=== PATIENT | female | born 1965 | race Caucasian/White ===

== ENCOUNTER 2019-03-07 13:46 | Emergency (ER) | payer OTHER ==
[~2019-03-07] VITALS: Ht 165.1 cm; Wt 104.3 kg
[2019-03-07 14:23] LABS: BASOPHILS ABSOLUTE AUTO 0.07 K/mm3 (0.00-0.23); BASOPHILS PERCENT AUTO 1 % (0-2); EOSINOPHILS ABSOLUTE AUTO 0.92 K/mm3 (0.00-0.68); EOSINOPHILS PERCENT AUTO 11 % (0-6); Hematocrit 44.8 % (33.0-51.0); Hemoglobin 14.8 g/dL (11.5-16.0); IMMATURE GRAN ABSOLUTE AUTO 0.02 K/mm3 (0.00-0.10); IMMATURE GRAN PERCENT AUTO 0 % (0-1); LYMPHOCYTES ABSOLUTE AUTO 2.32 K/mm3 (0.84-5.20); LYMPHOCYTES PERCENT AUTO 28 % (21-46); MONOCYTES ABSOLUTE AUTO 0.64 K/mm3 (0.16-1.47); MONOCYTES PERCENT AUTO 8 % (4-13); Mean Corpuscular HGB 29.7 pg (26.0-34.0); Mean Corpuscular Volume 90 fL (80-100); Mean Platelet Volume 9.4 fL (9.1-12.4); NEUTROPHILS ABSOLUTE AUTO 4.33 K/mm3 (1.96-9.15); NEUTROPHILS PERCENT AUTO 52 % (41-73); Platelet Count 300 K/mm3 (150-400); RDW Coefficient Variation 12.4 % (11.7-14.2); RDW Standard Deviation 41.1 fL (35.1-46.3); Red Blood Cell Count 4.98 M/mm3 (3.80-5.20)
[2019-03-07 14:48] LABS: Alanine Aminotransfer (ALT/SGP 26 U/L (12-78); Albumin, Blood 3.5 g/dL (3.4-5.0); Albumin/Globulin Ratio 0.9 (0.8-1.8); Alk Phos 71 U/L (50-136); Anion Gap 8 mmol/L (6-16); Aspartate Aminotrans (AST/SGOT 13 U/L (12-37); Bilirubin, Total 0.6 mg/dL (0.1-1.0); Blood Urea Nitrogen 16 mg/dL (8-24); Bun/Creatinine Ratio 15.5 (12.0-20.0); CO2, Blood 24 mmol/L (21-32); Calcium, Blood 8.8 mg/dL (8.5-10.1); Chloride, Blood 108 mmol/L (98-108); Creatinine, Blood 1.03 mg/dL (0.40-1.00); Globulin, Blood 3.8 g/dL (2.2-4.0); Glomerular Filtration Rate 60 (60-); Glucose, Blood 146 mg/dL (70-99); Potassium, Blood 3.8 mmol/L (3.5-5.5); Sodium, Blood 140 mmol/L (136-145); Total Protein, Blood 7.3 g/dL (6.4-8.2); Troponin I <0.015 ng/mL (0.000-0.040)
[2019-03-07] MEDS ORDERED: ALBU90OI INH (15:52)
[2019-03-07] MEDS ORDERED: FLUT1DIS2 INH (15:52)
== END 2019-03-07 16:56 | disposition home or self-care (01) ==
LOC: ER 13:46
PROVIDERS: Physician Assistant
DX: J45.909 Unspecified asthma, uncomplicated (principal); Z87.891 Personal history of nicotine dependence; Z88.8 Allergy status to other drugs, medicaments and biological substances
CPT/HCPCS: 36415; 71046; 80053; 83880; 84484; 85025; 93005; 93010; 94644; 99284-25

== ENCOUNTER → 2019-11-26 | Outpatient (CLI) | payer OTHER ==
[~2019-11-26] MED LIST: ALBU90OI INH; FLUT1DIS2 INH
[2019-11-28 15:09] LABS: COTININE Negative ng/mL (Cutoff=300)
== END | disposition home or self-care (01) ==
LOC: LAB SHORT 15:26 → OLS 15:26
PROVIDERS: Orthopaedic Surgery
DX: Z01.812 Encounter for preprocedural laboratory examination (principal); Z87.891 Personal history of nicotine dependence

== ENCOUNTER 2020-01-21 05:59 | Day surgery (SDC) | payer OTHER ==
[~2020-01-21] VITALS: Wt 112.8 kg
[~2020-01-21 05:59] MED LIST changes: +ACET500 PO; +CURCUMIN PO; +ESCI10 PO; +METF500 PO; +MONT10T PO; +VITAMIN D2 PO; +Vitamin C100 M1 PO
--- NOTE | 2020-01-21 06:37 | NUR ---
Ambulatory in Day SurgeryLungs clear T/O to Auscultation. Patient confirms NPO status and agrees with scheduled surgery. Patient confirms NPO status and agrees with scheduled surgery.
--- NOTE | 2020-01-21 14:39 | NUR ---
THERAPY BEEN TO SEE PT, REPORTED THAT PT BECAME NAUSEOUS BUT DID NOT THROW UP AND THAT OTHER RN GAVE NAUSEA MEDICATION. PT NOW RESTING QUIETLY IN RECLINER CHAIR.
--- NOTE | 2020-01-21 16:29 | NUR ---
SHIFT SUMMARY PT ATE SMALL AMT OF LUNCH. WAS MED FOR NAUSEA DURING THERAPY. PT BEEN RESTING QUIETLY WHEN NOT DISTURBED. PT BEEN ASSISTED WITH ADL'S PRN. PT BEEN MED PRN FOR PAIN.
--- NOTE | 2020-01-21 17:11 | NUR ---
PT REPORT TO HAVE NAUSEA WHEN UP AND WALKED BUT BETTER NOW. PT VOIDED.
--- NOTE | 2020-01-22 04:44 | NUR ---
SHIFT SUMMARY L DONG POD1, A/O X4, VSS, TOLERATING PO, VOIDING WELL, PASSING FLATUS, AMBULATING W/ GB & FWW, UP TO CHAIR, POLAR PACK IN PLACE, PAIN CONTROLLED PER EMAR. CALL LIGHT IN REACH, WILL CONTINUE TO MONITOR AND REPORT TO ONCOMING DAY RN.
[2020-01-22 05:04] LABS: BASOPHILS ABSOLUTE AUTO 0.02 K/mm3 (0.00-0.23); BASOPHILS PERCENT AUTO 0 % (0-2); EOSINOPHILS PERCENT AUTO 0 % (0-6); Hematocrit 32.5 % (33.0-51.0); Hemoglobin 10.1 g/dL (11.5-16.0); IMMATURE GRAN ABSOLUTE AUTO 0.09 K/mm3 (0.00-0.10); IMMATURE GRAN PERCENT AUTO 1 % (0-1); LYMPHOCYTES ABSOLUTE AUTO 1.71 K/mm3 (0.84-5.20); LYMPHOCYTES PERCENT AUTO 10 % (21-46); MONOCYTES PERCENT AUTO 9 % (4-13); Mean Corpuscular HGB 28.8 pg (26.0-34.0); Mean Corpuscular HGB Conc 31.1 g/dL (31.5-36.5); Mean Corpuscular Volume 93 fL (80-100); Mean Platelet Volume 9.3 fL (9.1-12.4); NEUTROPHILS ABSOLUTE AUTO 14.33 K/mm3 (1.96-9.15); NEUTROPHILS PERCENT AUTO 81 % (41-73); Platelet Count 263 K/mm3 (150-400); RDW Coefficient Variation 12.5 % (11.7-14.2); RDW Standard Deviation 42.7 fL (35.1-46.3); Red Blood Cell Count 3.51 M/mm3 (3.80-5.20); White Blood Cell Count 17.65 K/mm3 (4.00-11.30)
[2020-01-22 05:30] LABS: Anion Gap 5 mmol/L (6-16); Blood Urea Nitrogen 17 mg/dL (8-24); Bun/Creatinine Ratio 19.3 (12.0-20.0); CO2, Blood 25 mmol/L (21-32); Calcium, Blood 8.3 mg/dL (8.5-10.1); Chloride, Blood 106 mmol/L (98-108); Creatinine, Blood 0.88 mg/dL (0.40-1.00); Glomerular Filtration Rate >60 (60-); Glucose, Blood 147 mg/dL (70-99); Potassium, Blood 4.6 mmol/L (3.5-5.5); Sodium, Blood 136 mmol/L (136-145)
[2020-01-22] MEDS ORDERED: Percocet 5-3251 EACH PO (09:33)
[2020-01-22] MEDS ORDERED: Aspir 8181 MG PO (09:34)
--- NOTE | 2020-01-22 10:33 | NUR ---
1030 discharged to home with . pt reports pain controlled, hector po food and fluid. pt verbalizes understanding of discharge instructions
--- NOTE | 2020-01-23 15:29 | NUR ---
01/23/20 1529 Luann Hess VERIFICTIONS: EDIT CHART.
== END 2020-01-22 10:30 | disposition home or self-care (01) ==
LOC: ORSCMMR 05:59 → ORD 07:30 → SURS 10:55 → ORSCMMR 01-22 10:30
PROVIDERS: Orthopaedic Surgery
PROC: 0SRB0JZ Replacement of Left Hip Joint with Synthetic Substitute, Open Approach (ICD-10-PCS; principal; 2020-01-21 07:30)
PROC: 8E0Y0CZ Robotic Assisted Procedure of Lower Extremity, Open Approach (ICD-10-PCS; principal; 2020-01-21 07:30)
DX: M16.12 Unilateral primary osteoarthritis, left hip (principal); E11.9 Type 2 diabetes mellitus without complications; J45.909 Unspecified asthma, uncomplicated; Z79.4 Long term (current) use of insulin; Z79.899 Other long term (current) drug therapy
CPT/HCPCS: 27130; S2900; 72170; 80048; 82947; 85025; 88300; 97110; 97116; 97162; 97530; A9270; A9270-GY; C1776; J0171; J0690; J0735; J1100; J1885; J2250; J2370; J2405; J2704; J2710; J2795; J3010; J7120

== ENCOUNTER → 2020-08-11 | Outpatient (CLI) | payer OTHER ==
[~2020-08-11] MED LIST changes: +Aspir 8181 MG PO; +FLOVENT HFA12 GM INH; +GABA100 PO; +NAPR500 PO; +OXYB5 PO; +Percocet 5-3251 EACH PO; +TOPIRAMATE ER50 MG PO; +XARELTO10 M1 PO
[2020-08-13 09:11] LABS: COTININE Negative ng/mL (Cutoff=300)
== END | disposition home or self-care (01) ==
LOC: LAB SHORT 09:00 → LAB 09:00 → LAB FUT 08-10 11:30
PROVIDERS: Orthopaedic Surgery
DX: Z01.812 Encounter for preprocedural laboratory examination (principal); M16.11 Unilateral primary osteoarthritis, right hip

== ENCOUNTER 2020-09-08 08:14 | Day surgery (SDC) | payer OTHER | END 2020-09-09 11:48 | disposition home or self-care (01) | LOC: ORSCMMR 08:14 → SURS 15:07 | PROC: 0SR90JA Replacement of Right Hip Joint with Synthetic Substitute, Uncemented, Open Approach (ICD-10-PCS; principal; 2020-09-08) | DX: M16.11 Unilateral primary osteoarthritis, right hip (principal); E66.01 Morbid (severe) obesity due to excess calories; Z68.41 Body mass index [BMI] 40.0-44.9, adult; Z79.899 Other long term (current) drug therapy ==

== ENCOUNTER 2021-12-03 20:50 | Emergency (ER) | payer OTHER ==
[~2021-12-03] VITALS: Ht 165.1 cm; Wt 94.8 kg
[2021-12-03 21:36] LABS: BASOPHILS ABSOLUTE AUTO 0.05 K/mm3 (0.00-0.23); BASOPHILS PERCENT AUTO 1 % (0-2); EOSINOPHILS ABSOLUTE AUTO 0.25 K/mm3 (0.00-0.68); EOSINOPHILS PERCENT AUTO 2 % (0-6); Hematocrit 41.6 % (33.0-51.0); Hemoglobin 14.1 g/dL (11.5-16.0); IMMATURE GRAN ABSOLUTE AUTO 0.03 K/mm3 (0.00-0.10); IMMATURE GRAN PERCENT AUTO 0 % (0-1); LYMPHOCYTES ABSOLUTE AUTO 2.01 K/mm3 (0.84-5.20); LYMPHOCYTES PERCENT AUTO 19 % (21-46); MONOCYTES PERCENT AUTO 11 % (4-13); Mean Corpuscular HGB 29.3 pg (26.0-34.0); Mean Corpuscular HGB Conc 33.9 g/dL (31.5-36.5); Mean Corpuscular Volume 86 fL (80-100); Mean Platelet Volume 9.9 fL (9.1-12.4); NEUTROPHILS ABSOLUTE AUTO 7.32 K/mm3 (1.96-9.15); NEUTROPHILS PERCENT AUTO 67 % (41-73); Platelet Count 261 K/mm3 (150-400); RDW Coefficient Variation 14.3 % (11.7-14.2); RDW Standard Deviation 44.6 fL (35.1-46.3); Red Blood Cell Count 4.82 M/mm3 (3.80-5.20); White Blood Cell Count 10.86 K/mm3 (4.00-11.30)
[2021-12-03 21:52] LABS: Albumin, Blood 3.1 g/dL (3.4-5.0); Albumin/Globulin Ratio 0.8 (0.8-1.8); Bilirubin, Total 0.7 mg/dL (0.1-1.0); Bun/Creatinine Ratio 18.8 (12.0-20.0); Creatinine, Blood 0.74 mg/dL (0.40-1.00); Globulin, Blood 3.8 g/dL (2.2-4.0); Potassium, Blood 2.8 mmol/L (3.5-5.5); Total Protein, Blood 6.9 g/dL (6.4-8.2)
[2021-12-04] MEDS ORDERED: OMEP20ER PO (01:27)
[2021-12-04] MEDS ORDERED: ONDA4ODT MM (01:40)
== END 2021-12-04 05:07 | disposition home or self-care (01) ==
LOC: ER 20:50
PROVIDERS: Emergency Medicine
DX: R11.2 Nausea with vomiting, unspecified (principal); R10.13 Epigastric pain; N18.30 Chronic kidney disease, stage 3 unspecified; Z98.84 Bariatric surgery status; Z88.8 Allergy status to other drugs, medicaments and biological substances; Z79.899 Other long term (current) drug therapy
CPT/HCPCS: 36415; 74177; 80053; 85025; 96365-59; 96366; 96375; 99284-25; J0780; J2270; J2405; J3480; J7030; J7050; Q9967

== ENCOUNTER 2022-11-23 11:42 | Emergency (ER) | payer OTHER ==
[~2022-11-23] VITALS: Ht 162.6 cm; Wt 68.0 kg
[~2022-11-23 11:42] MED LIST changes: +OMEP20ER PO; +ONDA4ODT MM
[2022-11-23 12:07] LABS: BASOPHILS ABSOLUTE AUTO 0.03 K/mm3 (0.00-0.23); BASOPHILS PERCENT AUTO 0 % (0-2); EOSINOPHILS ABSOLUTE AUTO 0.02 K/mm3 (0.00-0.68); EOSINOPHILS PERCENT AUTO 0 % (0-6); Hematocrit 43.4 % (33.0-51.0); Hemoglobin 14.5 g/dL (11.5-16.0); IMMATURE GRAN ABSOLUTE AUTO 0.03 K/mm3 (0.00-0.10); IMMATURE GRAN PERCENT AUTO 0 % (0-1); LYMPHOCYTES ABSOLUTE AUTO 1.69 K/mm3 (0.84-5.20); LYMPHOCYTES PERCENT AUTO 15 % (21-46); MONOCYTES ABSOLUTE AUTO 0.83 K/mm3 (0.16-1.47); MONOCYTES PERCENT AUTO 7 % (4-13); Mean Corpuscular HGB Conc 33.4 g/dL (31.5-36.5); Mean Corpuscular Volume 90 fL (80-100); Mean Platelet Volume 9.3 fL (9.1-12.4); NEUTROPHILS ABSOLUTE AUTO 8.87 K/mm3 (1.96-9.15); NEUTROPHILS PERCENT AUTO 77 % (41-73); Platelet Count 286 K/mm3 (150-400); RDW Coefficient Variation 12.5 % (11.7-14.2); RDW Standard Deviation 41.3 fL (35.1-46.3); Red Blood Cell Count 4.84 M/mm3 (3.80-5.20); White Blood Cell Count 11.47 K/mm3 (4.00-11.30)
[2022-11-23 12:40] LABS: Albumin, Blood 3.6 g/dL (3.4-5.0); Calcium, Blood 8.8 mg/dL (8.5-10.1); Potassium, Blood 3.9 mmol/L (3.5-5.5)
[2022-11-23 12:41] LABS: Bilirubin, Total 0.9 mg/dL (0.1-1.0); Bun/Creatinine Ratio 14.9 (12.0-20.0); Creatinine, Blood 0.87 mg/dL (0.40-1.00); Globulin, Blood 3.6 g/dL (2.2-4.0); Total Protein, Blood 7.2 g/dL (6.4-8.2)
[2022-11-23] MEDS ORDERED: HYOS.125 PO (15:06)
[2022-11-23] MEDS ORDERED: ONDA4ODT MM (15:06)
[2022-11-23 15:15] VITALS: BP 112/66
== END 2022-11-23 15:40 | disposition home or self-care (01) ==
LOC: ER 11:42
PROVIDERS: Emergency Medicine
DX: K52.9 Noninfective gastroenteritis and colitis, unspecified (principal); N18.30 Chronic kidney disease, stage 3 unspecified; Z88.8 Allergy status to other drugs, medicaments and biological substances; Z79.899 Other long term (current) drug therapy
CPT/HCPCS: 80053; 83690; 85025; 96374; 99284-25; A9270; J2405; J7030

== ENCOUNTER 2024-04-28 11:14 | Emergency (ER) | payer OTHER ==
[~2024-04-28] VITALS: Ht 165.1 cm; Wt 74.8 kg
[~2024-04-28 11:14] MED LIST changes: +HYOS.125 PO
[2024-04-28 11:41] VITALS: BP 119/76
[2024-04-28] MEDS ORDERED: Ketorolac Tromethamine 30mg Vial IM ONE (12:45)
[2024-04-28] MEDS ORDERED: Methocarbamol 500 MG Tab PO ONE (12:50)
[2024-04-28] MEDS ORDERED: Methyl Salicylate/Menth/Camph 57 GM TUBE TOP ONE (12:50)
[2024-04-28 13:24] LABS: Source, Urine Clean Catch
[2024-04-28 13:28] LABS: Appearance, Urine Clear (Clear); Bilirubin, Urine Neg (Neg); Blood, Urine Neg (Neg); Color, Urine Yellow (P-Yellow); Glucose Qualitative, Urine Neg (Neg); Ketones, Urine Neg (Neg); Leukocyte Esterase, Urine 2+ (Neg); Nitrite, Urine Neg (Neg); Protein, Urine Neg (Neg); Urobilinogen, Urine 1+ (Normal)
[2024-04-28 13:38] LABS: Bacteria Many /hpf; Squamous Epithelial Cells Few /hpf (Few)
[2024-04-28] MEDS ORDERED: Robaxin750 MG PO (14:35)
== END 2024-04-28 14:10 | disposition home or self-care (01) ==
LOC: ER 11:14
PROVIDERS: Physician Assistant
DX: M54.50 Low back pain, unspecified (principal); Z59.89 Other problems related to housing and economic circumstances; N18.30 Chronic kidney disease, stage 3 unspecified; Z88.9 Allergy status to unspecified drugs, medicaments and biological substances; Z79.51 Long term (current) use of inhaled steroids; Z79.899 Other long term (current) drug therapy; Z79.1 Long term (current) use of non-steroidal anti-inflammatories (NSAID); Z79.84 Long term (current) use of oral hypoglycemic drugs
CPT/HCPCS: 81001; 87086; 96372; 99283-25; A9270; J1885

== ENCOUNTER 2024-12-03 14:10 | Emergency (ER) | payer OTHER ==
[~2024-12-03] VITALS: Ht 162.6 cm; Wt 75.8 kg
[~2024-12-03 14:10] MED LIST changes: +Robaxin750 MG PO
[2024-12-03 14:32] VITALS: BP 133/78
[2024-12-03] MEDS ORDERED: Ketorolac Tromethamine 30mg Vial IM ONE (17:05)
[2024-12-03] MEDS ORDERED: Ondansetron 4 MG SoluTab SL ONE (17:05)
[2024-12-03] MEDS ORDERED: ONDA4ODT MM (17:09)
[2024-12-03] MEDS ORDERED: ACET500 PO (17:09)
== END 2024-12-03 17:35 | disposition home or self-care (01) ==
LOC: ER 14:10
DX: S09.90XA Unspecified injury of head, initial encounter (principal); Z98.84 Bariatric surgery status; W18.30XA Fall on same level, unspecified, initial encounter
CPT/HCPCS: 70450; 72125; 96372; 99284-25; A9270; J1885